=== PATIENT | female | born 1975 | race Two or more races ===

== ENCOUNTER 2019-01-05 06:00 | Day surgery (SDC) | payer OTHER ==
[2019-01-05] MEDS ORDERED: PROTONIX20 MG PO (07:38)
== END 2019-01-05 08:40 | disposition home or self-care (01) ==
LOC: AMB-ENDOS 06:00
DX: K31.7 Polyp of stomach and duodenum (principal); K44.9 Diaphragmatic hernia without obstruction or gangrene

== ENCOUNTER 2020-06-13 06:00 | Day surgery (SDC) | payer OTHER ==
[~2020-06-13 06:00] MED LIST: PROTONIX20 MG PO
== END 2020-06-13 11:55 | disposition home or self-care (01) ==
LOC: AMB-ENDOS 06:00
PROVIDERS: ATTEND Surgery
DX: K62.89 Other specified diseases of anus and rectum (principal); Z12.11 Encounter for screening for malignant neoplasm of colon; Z20.822 Contact with and (suspected) exposure to COVID-19

== ENCOUNTER 2021-05-23 05:44 | Day surgery (SDC) | payer OTHER | END 2021-05-23 15:40 | disposition home or self-care (01) | LOC: CIR.AMB 05:44 | PROVIDERS: ATTEND Plastic Surgery | DX: E66.01 Morbid (severe) obesity due to excess calories (principal) ==